=== PATIENT | female | born 1930 | race Caucasian/White ===

== ENCOUNTER 2018-03-08 19:29 | Inpatient (IN) | payer MEDICARE, MEDICAID ==
[~2018-03-08] VITALS: Ht 152.4 cm; Wt 54.4 kg
[~2018-03-08 19:29] MED LIST: AMLO10TA80 PO; ESCI10TA54 PO; ISOS60TA4 PO; LEVO50TA8 PO; OMEP20CA10 PO; SITA100T11 PO; VALS1TAB30 PO
[2018-03-08 20:30] LABS: BASOPHILS % 0.1 % (0.0-2.0); EOSINOPHILS % 1.8 % (0.0-5.0); HEMATOCRIT. 35.3 % (36.0-48.0); HEMOGLOBIN. 12.1 g/dL (12.0-16.0); LYMPHOCYTES % 25.7 % (20.0-50.0); MEAN CORPUSCULAR HEMOGLOBIN 30.1 pg (28.0-32.0); MEAN PLATELET VOLUME 8.2 fl (7.4-10.4); NEUTROPHILS % 64.4 % (40.0-76.0); PLATELET 210 x1000/uL (130-400); RED BLOOD CELL COUNT 4.01 mill/uL (4.2-5.4); RED CELL DISTRIBUTION WIDTH 13.8 % (11.6-14.6)
[2018-03-08 20:31] LABS: CHLORIDE 103 mEq/L (98-107)
[2018-03-08 20:38] LABS: ETHANOL BLOOD < 10 mg/dL
[2018-03-08 20:41] LABS: AMMONIA 49 uMol/L (<32)
[2018-03-08 21:06] LABS: BG BASE EXCESS 0.8 mmol/L (-2.0-2.0); BG CARBOXYHEMOGLOBIN 0.4 % (0.5-1.5); BG FRACTION INSPIRED OXYGEN 21; BG HCO3 ACT 25.5 mmol/L (22.0-26.0); BG METHEMOGLOBIN 0.2 % (0.0-1.5); BG OXYHEMOGLOBIN 91.4 % (94.0-97.0); BG PCO2 41.5 mmHg (35.0-45.0); BG PH 7.407 (7.350-7.450); BG PO2 63.2 mmHg (75.0-100.0); BG SAMPLE SITE LEFT RADIAL; BG TOTAL HEMOGLOBIN 12.2 g/dL (12.0-18.0); BG VENT MODE ROOM AIR
[2018-03-08] MEDS ORDERED: POTASSIUM CHLORIDE 20MEQ TABLET SR PO ONE (21:45)
[2018-03-08] MEDS ORDERED: LACTULOSE 20G/30ML UDC PO ONE (22:00)
[2018-03-08] MEDS ORDERED: FUROSEMIDE 20MG/2ML VIAL IVP ONE (22:00)
[2018-03-08] MEDS ORDERED: ASPIRIN 325MG TABLET PO ONE (22:00)
[2018-03-09] VITALS (7 sets, daily range): BP systolic 127–154; BP diastolic 44–59
[2018-03-09] MEDS ORDERED: DIPHENHYDRAMINE 50MG/ML VIAL IV PRN (01:00)
[2018-03-09] MEDS ORDERED: DEXTROSE 50% WATER 50ML SYRINGE IV PRN (01:00)
[2018-03-09] MEDS ORDERED: CLONIDINE 0.1MG TABLET PO PRN (01:00)
[2018-03-09] MEDS ORDERED: ONDANSETRON HCL 4MG/2ML VIAL IV PRN (01:00)
[2018-03-09] MEDS ORDERED: ONDANSETRON 4MG ODT PO PRN (01:30)
[2018-03-09] MEDS: BLOOD SUGAR DIAGNOSTIC STRIP TEST SCH ×4 (05:46→21:45)
[2018-03-09] MEDS: SODIUM CHLORIDE 0.9% INJ 3ML FLUSH IVF SCH ×3 (05:46→21:47)
[2018-03-09] MEDS: INSULIN LISPRO 100 UNITS/ML SUBCUT SCH ×4 (05:48→21:00)
[2018-03-09] MEDS: AMLODIPINE 5MG TABLET PO SCH ×2 (09:59→21:45)
[2018-03-09] MEDS: LOSARTAN POTASSIUM 50 MG TABLET PO SCH (09:59)
[2018-03-09] MEDS ORDERED: POTASSIUM CHLORIDE 20MEQ TABLET SR PO SCH (10:00)
[2018-03-09] MEDS ORDERED: MECLIZINE 25MG TABLET PO PRN (15:00)
[2018-03-09] MEDS ORDERED: GABA-531 MT (15:21)
[2018-03-09] MEDS ORDERED: OXCA300T31 PO (15:21)
[2018-03-09] MEDS ORDERED: ROSU20TA29 MT (15:21)
[2018-03-09] MEDS ORDERED: CARV12.545 PO (15:21)
[2018-03-09] MEDS ORDERED: IBUP-2028 PO (15:21)
[2018-03-09] MEDS ORDERED: SODIUM CHL 0.45% + KCL 20MEQ/L 1,000 ML IV SCH (16:00)
[2018-03-09] MEDS: PANTOPRAZOLE 40MG DR TABLET PO SCH (16:49)
[2018-03-09] MEDS ORDERED: LEVOFLOXACIN 500MG TABLET PO NR (17:00)
[2018-03-09] MEDS: DOCUSATE SODIUM 100MG CAPSULE PO SCH (17:00)
[2018-03-09] MEDS ORDERED: IPRATROPIUM/ALBUTEROL 0.5-3(2.5)MG/3ML NEB HHN PRN (17:00)
[2018-03-09] MEDS: OXCARBAZEPINE 300MG TABLET PO SCH (21:45)
[2018-03-09] MEDS: GABAPENTIN 300MG CAPSULE PO SCH (21:45)
[2018-03-09] MEDS: LACTULOSE 20G/30ML UDC PO SCH (21:46)
[2018-03-09] MEDS: ACETAMINOPHEN 325MG TABLET PO PRN (21:51)
[2018-03-09] MEDS ORDERED: GABAPENTIN 300MG CAPSULE PO SCH (22:00)
[2018-03-10] VITALS (7 sets, daily range): BP systolic 136–159; BP diastolic 57–72
[2018-03-10] MEDS: BLOOD SUGAR DIAGNOSTIC STRIP TEST SCH ×3 (05:53→17:18)
[2018-03-10] MEDS: LACTULOSE 20G/30ML UDC PO SCH ×2 (05:53→13:14)
[2018-03-10] MEDS: GABAPENTIN 300MG CAPSULE PO SCH ×2 (05:53→13:14)
[2018-03-10] MEDS: PANTOPRAZOLE 40MG DR TABLET PO SCH (05:53)
[2018-03-10] MEDS: SODIUM CHLORIDE 0.9% INJ 3ML FLUSH IVF SCH ×2 (05:53→13:18)
[2018-03-10] MEDS: INSULIN LISPRO 100 UNITS/ML SUBCUT SCH ×3 (05:53→17:15)
[2018-03-10] MEDS: ACETAMINOPHEN 325MG TABLET PO PRN ×2 (06:01→10:27)
[2018-03-10 07:49] LABS: AMMONIA 38 uMol/L (<32)
[2018-03-10 08:05] LABS: CHLORIDE 107 mEq/L (98-107)
[2018-03-10 08:10] LABS: BASOPHILS % 0.4 % (0.0-2.0); EOSINOPHILS % 1.2 % (0.0-5.0); HEMATOCRIT. 39.7 % (36.0-48.0); HEMOGLOBIN. 13.6 g/dL (12.0-16.0); LYMPHOCYTES % 18.7 % (20.0-50.0); MEAN CORPUSCULAR HEMOGLOBIN 30.5 pg (28.0-32.0); MEAN CORPUSCULAR VOLUME 88.6 fL (81.0-99.0); MEAN PLATELET VOLUME 8.4 fl (7.4-10.4); MONOCYTES % 6.6 % (2.0-8.0); NEUTROPHILS % 73.1 % (40.0-76.0); PLATELET 205 x1000/uL (130-400); RED BLOOD CELL COUNT 4.48 mill/uL (4.2-5.4); RED CELL DISTRIBUTION WIDTH 14.1 % (11.6-14.6)
[2018-03-10] MEDS ORDERED: POTASSIUM CHLORIDE 20MEQ TABLET SR PO NR (08:19)
[2018-03-10 08:28] LABS: PHOSPHORUS 1.8 mg/dL (2.5-4.9)
[2018-03-10] MEDS: OXCARBAZEPINE 300MG TABLET PO SCH (09:05)
[2018-03-10] MEDS: DOCUSATE SODIUM 100MG CAPSULE PO SCH (09:05)
[2018-03-10] MEDS: LOSARTAN POTASSIUM 50 MG TABLET PO SCH (09:06)
[2018-03-10] MEDS: AMLODIPINE 5MG TABLET PO SCH (09:06)
[2018-03-10 10:28] LABS: VITAMIN B12 SERUM 813 pg/mL (211-911)
[2018-03-10] MEDS ORDERED: LEVOFLOXACIN 500MG TABLET PO SCH (11:00)
[2018-03-10] MEDS ORDERED: LEVOFLOXACIN 250MG TABLET PO SCH (11:00)
[2018-03-10] MEDS ORDERED: POTASSIUM PHOS,M-BASIC-D-BASIC 20 MMOL in DEXT 5% WATER 243.3333 ML IV NR (13:00)
== END 2018-03-10 18:20 | disposition home or self-care (01) | DRG 193 ==
LOC: EDBEDREQ 22:07 → ER 22:17 → 5WST 22:18 → ENRESERV 22:55 → CANRESERV 22:57 → ENRESERV 22:57
PROVIDERS: ADMIT Internal Medicine; ATTEND Internal Medicine
DX: J18.9 Pneumonia, unspecified organism (principal); G93.40 Encephalopathy, unspecified; J96.00 Acute respiratory failure, unspecified whether with hypoxia or hypercapnia; E72.20 Disorder of urea cycle metabolism, unspecified; N17.9 Acute kidney failure, unspecified; E11.9 Type 2 diabetes mellitus without complications; E78.00 Pure hypercholesterolemia, unspecified; E78.5 Hyperlipidemia, unspecified; E83.39 Other disorders of phosphorus metabolism; E86.0 Dehydration; R15.9 Full incontinence of feces; R47.1 Dysarthria and anarthria; R53.81 Other malaise; R55 Syncope and collapse; E87.6 Hypokalemia; H54.61 Unqualified visual loss, right eye, normal vision left eye; I10 Essential (primary) hypertension; M19.90 Unspecified osteoarthritis, unspecified site; R29.6 Repeated falls; R32 Unspecified urinary incontinence; Z79.82 Long term (current) use of aspirin; Z86.73 Personal history of transient ischemic attack (TIA), and cerebral infarction without residual deficits; Z87.01 Personal history of pneumonia (recurrent); Z95.0 Presence of cardiac pacemaker
CPT/HCPCS: 36415; 36600; 70450; 71045; 80048; 80053; 82140; 82375; 82607; 82805; 82962; 83605; 83690; 83735; 83880; 84100; 84443; 84484; 85025; 93005; 93970; 96374; 97162; 97166; 99285; G0482; J1815; J1940; J3480; J3490; J7060